=== PATIENT | female | born 2000 | race African-American/Black ===

== ENCOUNTER 2021-08-08 18:10 | Emergency (ER) | payer BC, OTHER ==
[~2021-08-08] VITALS: Ht 154.9 cm; Wt 79.4 kg
[2021-08-08 19:40] LABS: Basophils # (auto) 0 10 ^3/uL (0-0.2); Basophils % (auto) 0.3 % (0.0-2.0); Eosinophils # (auto) 0.1 10 ^3/uL (0-0.8); Eosinophils % (auto) 1.3 % (0.0-7.0); Hematocrit 39.7 % (36.0-46.0); Hemoglobin 13.2 g/dL (12.2-16.2); Lymphocytes # (auto) 1.1 10 ^3/uL (0.4-5.4); Lymphocytes % (auto) 15.7 % (10.0-50.0); Mean Corpuscular Hemoglobin 26.6 pg (28.0-32.0); Mean Corpuscular Hgb Conc. 33.4 g/dL (32.0-36.0); Mean Corpuscular Volume 79.8 fL (80.0-100.0); Monocytes # (auto) 0.6 10 ^3/uL (0-1.3); Monocytes % (auto) 8.1 % (0.0-12.0); Neutrophils # (auto) 5.2 10 ^3/uL (1.6-8.6); Neutrophils % (auto) 74.6 % (37.0-80.0); Red Blood Cells 4.97 10^6/uL (4.0-5.20); Red Cell Distribution Width 13.3 % (11.8-14.3)
[2021-08-08 19:41] LABS: Urine Bacteria FEW /hpf (None Seen); Urine Blood Negative /uL (Negative); Urine Specific Gravity 1.009 (1.001-1.035); Urine WBC 1 /hpf (0 - 5)
[2021-08-08 19:58] LABS: Albumin 3.8 g/dL (3.4-5.0); BUN/Creatinine Ratio 8.5; Calcium 9.7 mg/dL (8.5-10.1); Potassium 3.8 mmol/L (3.5-5.1)
[2021-08-08 20:04] LABS: Bilirubin, Total 0.4 mg/dL (0.2-1.0)
[2021-08-09] MEDS ORDERED: CEPHALEXIN 250 MG CAP PO ONE (00:30)
[2021-08-09] MEDS ORDERED: CEPH500C PO (00:30)
[2021-08-09 01:52] VITALS: BP 102/65
== END 2021-08-09 01:58 | disposition home or self-care (01) ==
LOC: ER 18:10
DX: N75.1 Abscess of Bartholin's gland (principal); R50.9 Fever, unspecified
CPT/HCPCS: 36415; 71045; 74176; 76856; 80053; 81001; 83605; 83690; 85025; 87040; 93005